=== PATIENT | female | born 1975 | race Caucasian/White ===

== ENCOUNTER 2017-04-09 01:19 | Emergency (ER) | payer BC ==
[~2017-04-09] VITALS: Ht 167.6 cm; Wt 79.4 kg
[2017-04-09 01:24] VITALS: BP 200/113
--- NOTE | 2017-04-09 01:33 | NUR ---
PT TAKEN TO BED 6
--- NOTE | 2017-04-09 01:35 | NUR ---
42 Y/O F W/C/O AGITATION AFTER TAKING OXYCODONE LAST TAKEN 1800. HX. BACK PAIN ON OXYCODONE 30 MG. PT. [place] [facility] [place] [facility] [place] 2129 TODAY. NO MEDICAL HX.
--- NOTE | 2017-04-09 01:45 | NUR ---
Dr. Ruiz evaluating patient at bedside.
[2017-04-09] MEDS ORDERED: NACL 0.9% 1,000 ML IV ONE ×2 (01:50→04:45)
[2017-04-09] MEDS ORDERED: NALOXONE 0.4 MG/ML VIAL IVP ONE (01:50)
[2017-04-09 02:08] LABS: BARBITURATE, URINE NEG. ng/ml (NEG <=200); BENZODIAZEPINE, URINE NEG. ng/mL (NEG <=200); CANNABINOID, URINE NEG. ng/mL (NEG <=50); COCAINE, URINE NEG. ng/mL (NEG <=300); OPIATE, URINE POS. ng/mL (NEG <=2000); PHENCYCLIDINE SCREEN,URINE NEG. ng/mL (NEG <=25)
[2017-04-09] MEDS ORDERED: ACETAMINOPHEN EXTRA STRENGTH 500 MG TAB PO ONE (02:10)
[2017-04-09 02:28] VITALS: BP 125/79
== END 2017-04-09 02:27 | disposition home or self-care (01) ==
LOC: MED 01:19
DX: T40.601A Poisoning by unspecified narcotics, accidental (unintentional), initial encounter (principal); T43.621A Poisoning by amphetamines, accidental (unintentional), initial encounter; G89.29 Other chronic pain; Y92.89 Other specified places as the place of occurrence of the external cause
CPT/HCPCS: 36415; 80305; 96374; 99284; G0482; J2310

== ENCOUNTER 2023-04-25 17:53 | Inpatient (IN) | payer BC ==
[~2023-04-25] VITALS: Ht 167.6 cm; Wt 88.9 kg
[2023-04-25 18:20] VITALS: BP 180/112; PULSE 110; RESP 20; TEMP 99.1; O2SAT 97
[2023-04-25] MEDS ORDERED: NACL 0.9% 1,000 ML IV SCH (18:40)
[2023-04-25] MEDS ORDERED: MORPHINE SULFATE 4 MG/ML SYR IVP ONE (18:45)
[2023-04-25 19:22] LABS: BASOPHILS % (AUTO) 0.5 % (0.0-2.0); EOSINOPHILS # (AUTO) 0.1 K/uL (0-0.4); EOSINOPHILS % (AUTO) 1.9 % (0.0-4.0); HEMATOCRIT 41.7 % (36-48); HEMOGLOBIN 13.7 g/dL (12.0-16.0); LYMPHOCYTES # (AUTO) 1.4 K/uL (2.5-16.5); LYMPHOCYTES % (AUTO) 19.1 % (20.5-51.1); MEAN CORPUSCULAR HEMOGLOBIN 28 pg (27-31); MEAN CORPUSCULAR HGB CONC 33 g/dL (33-37); MEAN CORPUSCULAR VOLUME 85.5 fL (80-94); MONOCYTES # (AUTO) 0.5 K/uL (0.8-1.0); MONOCYTES % (AUTO) 6.6 % (1.7-9.3); NEUTROPHILS # (AUTO) 5.4 K/uL (1.8-7.7); NEUTROPHILS % (AUTO) 71.9 % (42.2-75.2); PLATELET COUNT (AUTO) 199 K/uL (140-450); RED BLOOD CELL COUNT(AUTO) 4.88 MIL/uL (4.20-5.40); RED CELL DISTRIBUTION WIDTH 13.8 % (11.6-13.7); WHITE BLOOD COUNT (AUTO) 7.5 K/uL (4.8-10.8)
[2023-04-25] MEDS ORDERED: metroNIDAZOLE 500 MG/NS PREMIX 100 ML IV ONE (19:45)
[2023-04-25] MEDS ORDERED: VANCOMYCIN 1,000 MG in DEXTROSE 5% 250 ML IV ONE (19:45)
[2023-04-25 19:52] LABS: ALANINE AMINOTRANSFERASE 24 U/L (12-78); ALBUMIN 3.3 g/dL (3.4-5.0); ALKALINE PHOSPHATASE 133 U/L (50-136); ANION GAP 12.2 (8-16); ASPARTATE AMINOTRANSFERASE 11 U/L (15-37); CALCIUM 9.2 mg/dL (8.5-10.1); CARBON DIOXIDE 28.5 mmol/L (21-32); CHLORIDE 94 mmol/L (98-107); CREATINE KINASE, TOTAL 72 U/L (26-192); GFR ARICAN-AMERICAN 76 mL/min (>90); GFR NON ARICAN-AMERICAN 63 mL/min (>90); POTASSIUM 3.7 mmol/L (3.5-5.1); SODIUM SERUM 131 mmol/L (136-145); TOTAL BILIRUBIN 0.2 mg/dL (0.0-1.0); TOTAL PROTEIN, SERUM 7.3 g/dL (6.4-8.2); UREA NITROGEN, BLOOD 6 mg/dL (7-18)
[2023-04-25 19:54] LABS: GLUCOSE 617 mg/dL (74-106)
[2023-04-25 19:55] LABS: INR 0.92 (0.8-1.2); LACTIC ACID 4.2 mmol/L (0.4-2.0); PROTHROMBIN TIME 9.7 secs (10.8-13.4)
[2023-04-25 20:00] LABS: ACETONE, SERUM Negative (NEGATIVE)
[2023-04-25] MEDS ORDERED: NACL 0.9% 1,000 ML IV ONE (20:15)
[2023-04-25] MEDS ORDERED: INSULIN REGULAR, HUMAN 100 UNIT/ML VIAL IV ONE (20:20)
[2023-04-25] MEDS ORDERED: POTASSIUM CHL 20 MEQ/NACL 0.9% 1,000 ML IV ONE (20:20)
[2023-04-25 20:58] LABS: BILIRUBIN,URINE NEGATIVE (NEGATIVE); BLOOD, URINE 1+ (NEGATIVE); COLOR,URINE YELLOW (YELLOW); LEUKOCYTE ESTERASE ,URINE NEGATIVE (NEGATIVE); NITRITE, URINE NEGATIVE (NEGATIVE); PROTEIN,URINE NEGATIVE (NEGATIVE); UGLUCOSE 3+ (NEGATIVE); UROBILINOGEN,URINE 0.2 EU/dL (0.2 - 1)
[2023-04-25 20:59] LABS: APPEARANCE,URINE SLIGHTLY HAZY (CLEAR)
[2023-04-25 21:09] LABS: BACTERIA,URINE 10-30 (MOD) /HPF (None Seen)
[2023-04-25 21:10] LABS: SQUAMOUS EPITHELIAL CELL,UR 0-3 (FEW) /LPF (0-3 (FEW))
[2023-04-25] MEDS ORDERED: VANCOMYCIN PER PHARMACY MC PRN (21:40)
[2023-04-25] MEDS ORDERED: VANCOMYCIN 1,000 MG VIAL ONE (22:18)
[2023-04-25 22:50] VITALS: PULSE 99; RESP 18; O2SAT 97
[2023-04-25 23:00] VITALS: BP 162/94; PULSE 99; RESP 18; TEMP 98.8; O2SAT 97
[2023-04-25 23:01] VITALS: PULSE 112
[2023-04-25] MEDS: NACL 0.9% 1,000 ML IV SCH (23:35)
[2023-04-26] VITALS (9 sets, daily range): BP systolic 143–172; BP diastolic 71–108; PULSE 76–122; RESP 18–20; TEMP 97.4–98.2; O2SAT 95–98
[2023-04-26] MEDS: metroNIDAZOLE 500 MG/NS PREMIX 100 ML IV SCH ×4 (01:18→17:17)
[2023-04-26] MEDS: NACL 0.9% 1,000 ML IV SCH ×4 (04:20→23:06)
[2023-04-26] MEDS: MORPHINE SULFATE 2 MG/ML SYR IVP PRN ×4 (04:52→19:21)
[2023-04-26] MEDS: INSULIN LISPRO SLIDING SCALE 100 UNITS/ML VIAL SUBQ PRN ×4 (06:36→20:35)
[2023-04-26] MEDS: BLOOD GLUCOSE MONITORING 1 DEV DEV FS SCH ×4 (06:36→20:36)
[2023-04-26 07:00] LABS: ALBUMIN 2.8 g/dL (3.4-5.0); ANION GAP 8.7 (8-16); BASOPHILS % (AUTO) 0.5 % (0.0-2.0); CALCIUM 8.4 mg/dL (8.5-10.1); CARBON DIOXIDE 30.8 mmol/L (21-32); CREATININE 0.5 mg/dL (0.6-1.3); EOSINOPHILS # (AUTO) 0.2 K/uL (0-0.4); EOSINOPHILS % (AUTO) 2.9 % (0.0-4.0); HEMATOCRIT 37.6 % (36-48); HEMOGLOBIN 12.5 g/dL (12.0-16.0); LYMPHOCYTES # (AUTO) 1.8 K/uL (2.5-16.5); LYMPHOCYTES % (AUTO) 28.8 % (20.5-51.1); MEAN CORPUSCULAR HEMOGLOBIN 28 pg (27-31); MEAN CORPUSCULAR HGB CONC 33 g/dL (33-37); MEAN CORPUSCULAR VOLUME 85.2 fL (80-94); MONOCYTES # (AUTO) 0.5 K/uL (0.8-1.0); MONOCYTES % (AUTO) 7.2 % (1.7-9.3); NEUTROPHILS # (AUTO) 3.8 K/uL (1.8-7.7); NEUTROPHILS % (AUTO) 60.6 % (42.2-75.2); PLATELET COUNT (AUTO) 165 K/uL (140-450); POTASSIUM 3.5 mmol/L (3.5-5.1); RED BLOOD CELL COUNT(AUTO) 4.41 MIL/uL (4.20-5.40); RED CELL DISTRIBUTION WIDTH 13.4 % (11.6-13.7); TOTAL BILIRUBIN 0.2 mg/dL (0.0-1.0); TOTAL PROTEIN, SERUM 6.2 g/dL (6.4-8.2); WHITE BLOOD COUNT (AUTO) 6.3 K/uL (4.8-10.8)
[2023-04-26] MEDS ORDERED: hydrALAZINE 20 MG/ML VIAL IVP PRN (08:45)
[2023-04-26] MEDS: VANCOMYCIN 1.25GM PREMIX 250 ML IV SCH ×2 (10:34→17:43)
[2023-04-26] MEDS ORDERED: LOSARTAN 25 MG TAB PO SCH (11:45)
[2023-04-26] MEDS ORDERED: INSULIN LANTUS 100 UNITS/ML 10 ML VIAL SUBQ SCH ×4 (11:50→21:00)
[2023-04-26] MEDS: LOSARTAN 25 MG TAB PO SCH (20:31)
[2023-04-26] MEDS: INSULIN LANTUS 100 UNITS/ML 10 ML VIAL SUBQ SCH (20:38)
[2023-04-27] MEDS: MORPHINE SULFATE 2 MG/ML SYR IVP PRN ×2 (00:25→08:40)
[2023-04-27] MEDS: metroNIDAZOLE 500 MG/NS PREMIX 100 ML IV SCH ×3 (00:25→12:00)
[2023-04-27] MEDS: VANCOMYCIN 1.25GM PREMIX 250 ML IV SCH ×2 (01:54→10:22)
[2023-04-27] MEDS: BLOOD GLUCOSE MONITORING 1 DEV DEV FS SCH ×2 (06:57→11:34)
[2023-04-27] MEDS: INSULIN LISPRO SLIDING SCALE 100 UNITS/ML VIAL SUBQ PRN ×2 (06:57→11:35)
[2023-04-27] MEDS: INSULIN LANTUS 100 UNITS/ML 10 ML VIAL SUBQ SCH ×2 (06:59→11:37)
[2023-04-27 07:35] LABS: BASOPHILS % (AUTO) 0.5 % (0.0-2.0); EOSINOPHILS # (AUTO) 0.1 K/uL (0-0.4); HEMATOCRIT 39.5 % (36-48); HEMOGLOBIN 13.3 g/dL (12.0-16.0); LYMPHOCYTES % (AUTO) 26.9 % (20.5-51.1); MEAN CORPUSCULAR HEMOGLOBIN 29 pg (27-31); MEAN CORPUSCULAR HGB CONC 34 g/dL (33-37); MONOCYTES # (AUTO) 0.5 K/uL (0.8-1.0); MONOCYTES % (AUTO) 6.5 % (1.7-9.3); NEUTROPHILS # (AUTO) 4.8 K/uL (1.8-7.7); NEUTROPHILS % (AUTO) 64.1 % (42.2-75.2); PLATELET COUNT (AUTO) 192 K/uL (140-450); RED BLOOD CELL COUNT(AUTO) 4.64 MIL/uL (4.20-5.40); RED CELL DISTRIBUTION WIDTH 13.6 % (11.6-13.7); WHITE BLOOD COUNT (AUTO) 7.4 K/uL (4.8-10.8)
[2023-04-27 08:00] VITALS: BP 134/88; PULSE 95; RESP 18; TEMP 97.7; O2SAT 97
[2023-04-27 08:07] LABS: ANION GAP 9.7 (8-16); CALCIUM 8.9 mg/dL (8.5-10.1); CREATININE 0.6 mg/dL (0.6-1.3); POTASSIUM 3.7 mmol/L (3.5-5.1); TOTAL BILIRUBIN 0.3 mg/dL (0.0-1.0); TOTAL PROTEIN, SERUM 6.5 g/dL (6.4-8.2)
[2023-04-27] MEDS: LOSARTAN 25 MG TAB PO SCH (09:04)
[2023-04-27] MEDS ORDERED: METF-1253 PO (12:33)
[2023-04-27] MEDS ORDERED: LOSA-269 PO (12:33)
[2023-04-27] MEDS ORDERED: METR-520 PO (12:33)
[2023-04-27] MEDS ORDERED: LOSA-272 PO (12:33)
[2023-04-27] MEDS ORDERED: LANTUS SUBQ (12:33)
[2023-04-27] MEDS ORDERED: CIPR500T4 PO (12:33)
[2023-04-27 12:43] VITALS: BP 134/88; PULSE 95; RESP 18; TEMP 97.7
[2023-04-27] MEDS ORDERED: ACET-10509 PO (12:57)
== END 2023-04-27 13:55 | disposition home or self-care (01) | DRG 757 ==
LOC: MED 17:53 → MTU 21:51
PROVIDERS: ADMIT Student in an Organized Health Care Education/Training Program; ATTEND Student in an Organized Health Care Education/Training Program
DX: N76.0 Acute vaginitis (principal); E11.00 Type 2 diabetes mellitus with hyperosmolarity without nonketotic hyperglycemic-hyperosmolar coma (NKHHC); E44.0 Moderate protein-calorie malnutrition; I10 Essential (primary) hypertension; M54.9 Dorsalgia, unspecified; G89.29 Other chronic pain; Z88.6 Allergy status to analgesic agent; Z79.899 Other long term (current) drug therapy; Z68.31 Body mass index [BMI] 31.0-31.9, adult
CPT/HCPCS: 36415; 80053; 80202; 81001; 82009; 82550; 82803; 82948; 83036; 83605; 83690; 83930; 85025; 85610; 85730; 87040; 87070; 87081; 87086; 87205; 87210; 87491; 96365; 96375; 99291; J0360; J1815; J2270; J3370; J3372; J3490; J7030